=== PATIENT | male | born 1990 | race American Indian/Alaskan Native ===

== ENCOUNTER 2017-06-02 02:02 | Emergency (ER) | payer OTHER ==
[2017-06-02 03:23] VITALS: BP 117/68
--- NOTE | 2017-06-02 04:13 | XRay Report ---
FINAL REPORT EXAM: XR FOOT 3+V LT HISTORY: pain, swelling, unable to bear weight to L foot COMPARISONS: None. FINDINGS: Three nonweightbearing views left foot No bone lesion, periosteal reaction, or fracture. No deformity or gross malalignment. Lateral forefoot and midfoot soft tissue swelling is suggested. No radiodense foreign body. IMPRESSION: Suggested lateral forefoot and midfoot soft tissue swelling without acute osseous finding. Consider additional imaging for worsening/persistent symptoms.
[2017-06-02] MEDS ORDERED: ULTRAM PO ONE (07:58)
--- NOTE | 2017-06-02 07:58 | Emergency Department Report ---
ED Lower Extremity HPI - General Chief Complaint: Extremity Injury, Lower Stated Complaint: FOOT PAIN Time Seen by Provider: 06/02/17 07:54 Source: patient Mode of arrival: Ambulatory Limitations: No Limitations - History of Present Illness Initial Comments: This is a 26 y.o. male presents with pain to left foot from fall last night. He went skating last night and endured multiple falls. The last fall he remembers twisting left ankle. He limped out of [employer] ring because he couldn't bear weight to LLE. When he got home he took tylenol, iced, and soaked in epson salt. Pain remained 8/10 on scale. He noticed swelling and used a cane to walk into ER. Denies LOC, numbness and tingling, discoloration, and deformity. MD Complaint: foot injury (left) -: Last night Injury: Foot: Left (swelling, pain, unable to bear weight) Type of Injury: inversion Place: other (skating ring) Severity: severe Severity scale (0 -10): 8 Improves With: immobilization, rest Worsens With: weight bearing, movement, palpation Context: fall Associated Symptoms: swelling, unable to bear weight, ambulatory. denies: snap/ pop sensation, numbness, tingling, able to partially bear weight Treatments Prior to Arrival: cold therapy, NSAIDS, other (epson salt soaks) - Related Data Previous Rx's Medication Instructions Recorded Last Taken Type Cyclobenzaprine HCl [Flexeril 5 MG 5 mg PO TID 10 Days #30 tab 06/02/17 Unknown Rx TAB] Ibuprofen 800 mg PO Q6H PRN #28 tablet 06/02/17 Unknown Rx Allergies Allergy/AdvReac Type Severity Reaction Status Date / Time No Known Allergies Allergy Unverified 06/02/17 03:23 ED Review of Systems ROS: Stated complaint: FOOT PAIN Other details as noted in HPI Constitutional: no symptoms reported, see HPI. denies: chills, diaphoresis, fever, malaise, weakness Respiratory: no symptoms reported, see HPI. denies: cough, orthopnea, shortness of breath, SOB with exertion, SOB at rest, stridor, wheezing Cardiovascular: as per HPI. denies: chest pain, palpitations, dyspnea on exertion, orthopnea, edema, syncope, paroxysmal nocturnal dyspnea Musculoskeletal: as per HPI, joint swelling (left foot), myalgia. denies: back pain, arthralgia Skin: as per HPI. denies: rash, lesions, change in color, change in hair/nails , pruritus Neurological: as per HPI. denies: headache, weakness, numbness, paresthesias, confusion, abnormal gait, vertigo ED Past Medical Hx - Past Medical History Previous Medical History?: No - Surgical History Past Surgical History?: No - Social History Smoking Status: Current Every Day Smoker Substance Use Type: Marijuana - Medications Home Medications: Home Medications Medication Instructions Recorded Confirmed Last Taken Type Cyclobenzaprine HCl [Flexeril 5 MG 5 mg PO TID 10 Days #30 tab 06/02/17 Unknown Rx TAB] Ibuprofen 800 mg PO Q6H PRN #28 tablet 06/02/17 Unknown Rx ED Physical Exam - General Limitations: No Limitations General appearance: alert, in no apparent distress - Respiratory Respiratory exam: Present: normal lung sounds bilaterally. Absent: respiratory distress, wheezes, rales, rhonchi, stridor, chest wall tenderness, accessory muscle use, decreased breath sounds, prolonged expiratory - Cardiovascular Cardiovascular Exam: Present: regular rate, normal rhythm, normal heart sounds. Absent: bradycardia, tachycardia, irregular rhythm, systolic murmur, diastolic murmur, rubs, gallop, clicks, JVD, S3, S4 - Extremities Exam Extremities exam: Present: tenderness, normal capillary refill. Absent: calf tenderness - Expanded Lower Extremity Exam Left Hip exam: Present: normal inspection, full ROM. Absent: tenderness, swelling, abrasion, laceration, ecchymosis, deformity, crepidus, dislocation, erythema, external rotation, internal rotation, shortening, pelvic stability Upper Leg exam: Present: normal inspection, full ROM. Absent: tenderness, swelling, abrasion, laceration, ecchymosis, deformity, crepidus, dislocation, erythema Knee exam: Present: normal inspection, full ROM, full knee extension. Absent: tenderness, swelling, abrasion, laceration, ecchymosis, deformity, crepidus, dislocation, erythema, effusion, pain w/ pronation/supination, posterior draw sign, pain/laxity with valgus, pain/laxity with varus Lower Leg exam: Present: normal inspection, full ROM. Absent: tenderness, swelling, abrasion, laceration, ecchymosis, deformity, crepidus, dislocation, erythema, palpable cord, Kristy's sign Ankle exam: Absent: tenderness, swelling, abrasion, laceration, ecchymosis, deformity, crepidus, dislocation, erythema, anterior draw sign Foot/Toe exam: Present: tenderness (tenderness on palpation of dorsal area, limited ROM, 20), swelling. Absent: abrasion, laceration, ecchymosis, deformity , crepidus, dislocation, erythema, amputation, puncture wound, foreign body, calcaneal tenderness, tenderness at base of 5th metatarsal, nail avulsion, subungual hematoma Neuro vascular tendon exam: Present: no vascular compromise, significant pain with passive ROM of distal joint. Absent: pulse deficit, abnormal cap refill, motor deficit, sensory deficit, tendon deficit, extremity cold to touch, pallor , abnormal 2-point discrimination, decreased fine/light touch, foot drop, peroneal nerve deficit Gait: Positive: observed and limited by pain, unable to bear weight - Neurological Exam Neurological exam: Present: alert, oriented X3, CN II-XII intact, abnormal gait (unable to bear weight to LLE, pain), reflexes normal. Absent: altered, motor sensory deficit - Skin Skin exam: Present: warm, dry, intact, normal color. Absent: rash, cyanosis, diaphoretic, erythema, urticaria, vesicles, petechiae, pallor, abrasion, ecchymosis ED Course Vital Signs 06/02/17 06/02/17 02:21 03:12 Temperature 98.6 F 98.6 F Pulse Rate 106 H 107 H Respiratory 20 20 Rate Blood Pressure 117/68 117/68 O2 Sat by Pulse 97 96 Oximetry ED Lower Extremity MDM - Radiology Data Radiology results: image reviewed FINDINGS: Three nonweightbearing views left foot No bone lesion, periosteal reaction, or fracture. No deformity or gross malalignment. Lateral forefoot and midfoot soft tissue swelling is suggested. No radiodense foreign body. IMPRESSION: Suggested lateral forefoot and midfoot soft tissue swelling without acute osseous finding. Consider additional imaging for worsening/persistent symptoms. Critical care attestation.: If time is entered above; I have spent that time in minutes in the direct care of this critically ill patient, excluding procedure time. ED Disposition Clinical Impression: Sprain of tarsal ligament of left foot, initial encounter Disposition: -01 TO HOME OR SELFCARE Is pt being admited?: No Does the pt Need Aspirin: No Condition: Stable Instructions: Foot Sprain (ED), Ankle Exercises (GEN) Additional Instructions: Rest, apply ice to left foot, wear acewrap, and elevated while sitting. Follow up with primary care provider in 1 week if symptoms are not improved. Prescriptions: Cyclobenzaprine HCl [Flexeril 5 MG TAB] 5 mg PO TID 10 Days #30 tab Ibuprofen 800 mg PO Q6H PRN #28 tablet PRN Reason: Pain Referrals: PRIMARY CARE, [Primary Care Provider] - 3-5 Days [facility] [Outside] - 3-5 Days [facility] [Outside] - 3-5 Days Forms: Work/School Release Form Time of Disposition: 09:30 Print Language: SAO TOMEAN
== END 2017-06-02 10:04 | disposition home or self-care (01) ==
LOC: ED 02:02
DX: S93.612A Sprain of tarsal ligament of left foot, initial encounter (principal); F17.200 Nicotine dependence, unspecified, uncomplicated; F12.10 Cannabis abuse, uncomplicated; X58.XXXA Exposure to other specified factors, initial encounter; Y93.89 Activity, other specified; Y92.89 Other specified places as the place of occurrence of the external cause; Y99.8 Other external cause status
CPT/HCPCS: 99284

== ENCOUNTER 2020-12-13 10:13 | Emergency (ER) | payer SELFPAY ==
[2020-12-13 10:27] VITALS: BP 148/91
[2020-12-13] MEDS ORDERED: diphenhydrAMINE 25 MG CAP PO ONE (10:44)
[2020-12-13] MEDS ORDERED: METOCLOPRAMIDE 10 MG TAB PO ONE (10:44)
[2020-12-13] MEDS ORDERED: SUMAtriptan SUCCINATE 6 MG/0.5 ML INJ SUB-Q ONE (10:44)
--- NOTE | 2020-12-13 11:31 | Emergency Department Report ---
ED Headache HPI - General Chief Complaint: Headache Stated Complaint: MIGRAINE FAINTED Time Seen by Provider: 12/13/20 10:40 - History of Present Illness Initial Comments: Patient is a 30-year-old male presents emergency room with complaints of a headache that began this morning. Patient states that the headache is to the right zoroastrianism, right frontal, around the right eye. He states it causes his eyes to water in his nose to run. He states occasionally his vision feels blurry in the right eye. He has associated photophobia. He denies any fever, nausea, vomiting, diarrhea, numbness, weakness, speech disturbance, gait disturbance, neck stiffness. Patient states he had a similar headache to this 6 days ago. He states typically he takes 800 mg of ibuprofen and that relieves his headache. He has never seen anyone regarding his headaches. He states that he tried to take the ibuprofen today without much relief. no other medical history. No allergies to medications. Patient denies any thoughts of wanting to hurt himself or others. He denies any other concerns and he states that he has a headache and wants to be seen for his headache and that is all. Patient's mother was requesting to speak to me, I asked patient if he gives his permission for me able to speak to his mother, patient states no that I cannot speak to his mother, patient is alert and oriented x4, he denies SI or HI, patient is capable of decision-making capacity, I am unable to speak with patient's mother. Allergies/Adverse Reactions: Allergies No Known Allergies Allergy (Unverified 06/02/17 03:23) Home Medications: Ambulatory Orders Cyclobenzaprine HCl [Flexeril 5 MG TAB] 5 mg PO TID 10 Days #30 tab 06/02/17 Ibuprofen [Ibuprofen 800] 800 mg PO Q6H PRN #28 tablet 06/02/17 SUMAtriptan SUCCINATE [Imitrex] 25 mg PO QDAY PRN #12 tablet 12/13/20 ED Review of Systems ROS: Stated complaint: MIGRAINE FAINTED Other details as noted in HPI Comment: All other systems reviewed and negative ED Past Medical Hx - Past Medical History Previous Medical History?: No - Surgical History Past Surgical History?: No - Social History Smoking Status: Current Every Day Smoker Substance Use Type: Marijuana - Medications Home Medications: Home Medications Medication Instructions Recorded Confirmed Last Taken Type Cyclobenzaprine HCl [Flexeril 5 MG 5 mg PO TID 10 Days #30 tab 06/02/17 Unknown Rx TAB] Ibuprofen [Ibuprofen 800] 800 mg PO Q6H PRN #28 tablet 06/02/17 Unknown Rx SUMAtriptan SUCCINATE [Imitrex] 25 mg PO QDAY PRN #12 tablet 12/13/20 Unknown Rx ED Physical Exam - General Limitations: No Limitations General appearance: alert, in no apparent distress - Head Head exam: Present: atraumatic, normocephalic - Eye Eye exam: Present: normal appearance, PERRL, EOMI. Absent: conjunctival injection, periorbital swelling, periorbital tenderness Pupils: Present: normal accommodation - ENT ENT exam: Present: mucous membranes moist - Neck Neck exam: Present: normal inspection, full ROM. Absent: tenderness, meningismus - Respiratory Respiratory exam: Present: normal lung sounds bilaterally. Absent: respiratory distress, wheezes, rales, rhonchi, stridor, chest wall tenderness, accessory muscle use, decreased breath sounds, prolonged expiratory - Cardiovascular Cardiovascular Exam: Present: regular rate, normal rhythm, normal heart sounds. Absent: systolic murmur, diastolic murmur, rubs, gallop - Neurological Exam Neurological exam: Present: alert, oriented X3, CN II-XII intact, normal gait. Absent: motor sensory deficit - Expanded Neurological Exam Expanded Patient oriented to: Present: person, place, time Speech: Present: fluid speech Cranial nerves: EOM's Intact: Normal, Gag Reflex: Normal, Facial Sensation: Normal Cerebellar function: Finger to Nose: Normal, Heel to [place]: Normal, Romberg: Normal Sensory exam: Upper Extremity Light Touch: Normal, Upper Extremity Pin Prick: Normal, Upper Extremity Temperature: Normal, UE 2 Point Discrimination: Normal, Lower Extremity Light Touch: Normal, Lower Extremity Pin Prick: Normal, Lower Extremity Temperature: Normal, LE 2 Point Discrimination: Normal Motor strength exam: RUE: 5, LUE: 5, RLE: 5, LLE: 5 Best Eye Response ([place]): (4) open spontaneously Best Motor Response ([place]): (6) obeys commands Best Verbal Response ([place]): (5) oriented [place] Total: 15 - Psychiatric Psychiatric exam: Present: normal affect, normal mood - Skin Skin exam: Present: warm, dry, intact ED Course Vital Signs 12/13/20 10:24 Temperature 98.5 F Pulse Rate 80 Respiratory 22 Rate Blood Pressure 148/91 O2 Sat by Pulse 100 Oximetry ED Medical Decision Making - Medical Decision Making Patient is a 30-year-old male presents emergency room with complaints of a headache that began this morning. Patient states that the headache is to the right zoroastrianism, right frontal, around the right eye. He states it causes his eyes to water in his nose to run. He states occasionally his vision feels blurry in the right eye. He has associated photophobia. He denies any fever, nausea, vomiting, diarrhea, numbness, weakness, speech disturbance, gait disturbance, neck stiffness. Patient states he had a similar headache to this 6 days ago. He states typically he takes 800 mg of ibuprofen and that relieves his headache. He has never seen anyone regarding his headaches. He states that he tried to take the ibuprofen today without much relief. no other medical history. No allergies to medications. Patient denies any thoughts of wanting to hurt himself or others. He denies any other concerns and he states that he has a headache and wants to be seen for his headache and that is all. Patient's mother was requesting to speak to me, I asked patient if he gives his permission for me able to speak to his mother, patient states no that I cannot speak to his mother, patient is alert and oriented x4, he denies SI or HI, patient is capable of decision-making capacity, I am unable to speak with patient's mother. Vitals are stable. Patient has no focal neuro deficits on exam, no meningeal signs. Patient given medications while in the emergency department and symptoms completely resolved and he was feeling much better and ready to go home. Patient given prescription for medications. Symptoms and examination appear most consistent with cluster headache. Patient will be referred to primary care doctor. Advised patient Please take medication as prescribed as needed at onset of headache. Follow-up with your primary care doctor. Follow-up with a neurologist. Return to emergency room for any new or worsening symptoms. Critical care attestation.: If time is entered above; I have spent that time in minutes in the direct care of this critically ill patient, excluding procedure time. ED Disposition Clinical Impression: Headache Qualifiers: Headache type: unspecified Headache chronicity pattern: acute headache Intractability: not intractable Qualified Code(s): R51.9 - Headache, unspecified Disposition: DC- TO HOME OR SELFCARE Is pt being admited?: No Does the pt Need Aspirin: No Condition: Stable Instructions: Cluster Headache Additional Instructions: Please take medication as prescribed as needed at onset of headache. Follow-up with your primary care doctor. Follow-up with a neurologist. Return to emergency room for any new or worsening symptoms. recommend for you to get [place] at [facility] [place] or [facility] using [employer] for the most reasonable pricing Prescriptions: SUMAtriptan SUCCINATE [Imitrex] 25 mg PO QDAY PRN #12 tablet PRN Reason: headache Referrals: LORENZO LOCKE MD [Staff Physician] - 3-5 Days [facility] [Provider Group] - 3-5 Days KT DONNELLY MD [Referring] - 3-5 Days Time of Disposition: 12:12 Print Language: BENGALI
== END 2020-12-13 12:32 | disposition home or self-care (01) ==
LOC: ED 10:13
DX: R51.9 Headache, unspecified (principal); F17.200 Nicotine dependence, unspecified, uncomplicated; F12.90 Cannabis use, unspecified, uncomplicated; Z79.899 Other long term (current) drug therapy
CPT/HCPCS: 96372; 99282; J3030